=== PATIENT | male | born 1975 | race Caucasian/White ===

== ENCOUNTER 2023-06-01 11:11 | Emergency (ER) | payer MEDICARE, OTHER, SELFPAY ==
[2023-06-01 11:20] VITALS: BP 129/81; PULSE 98; RESP 18; TEMP 37.1; O2SAT 95; BMI 30.3
--- NOTE | 2023-06-01 12:21 | ED.GENADULT ---
HPI - General Adult General Chief complaint: Extremity Pain/Injury, Lower Stated complaint: right leg infection Time Seen by Provider: 06/01/23 11:34 Source: patient Mode of arrival: ambulatory Limitations: no limitations History of Present Illness HPI narrative: 47-year-old male coming in today with concerns about potential infection and his below the knee amputation stump. Patient states that he has a very difficult time finding prosthesis that fits and so he has recurrent infections and ulcerations of the stump. He denies any systemic symptoms. He states that he was sick with bronchitis for the last month, his last fever was approximately 7 days ago. He was treated with antibiotics for that he just finished his antibiotic 2 days ago. He states that there is some drainage coming from the stump. There is an ulceration present. Related Data Home Medications Medication Instructions Recorded Confirmed albuterol 90 mcg/actuation aerosol 2 spray inhalation ONCE 09/23/21 06/01/23 inhaler alprazolam 2 mg tablet 4 mg PO .Daily as needed PRN 09/23/21 06/01/23 dextroamphetamine-amphetamine 20 20 mg PO DAILY 09/23/21 06/01/23 mg tablet fluticasone 500 mcg-salmeterol 50 1 inh inhalation BID 09/23/21 06/01/23 mcg/dose blistr powdr for inhalation fluticasone propionate 50 2 spray intranasal QDAY 09/23/21 06/01/23 mcg/actuation nasal spray,suspension (Flonase Allergy Relief) methotrexate sodium (PF) 25 mg/mL 25 mg PO QWEEK 09/23/21 06/01/23 injection solution Previous Rx's Medication Instructions Recorded buprenorphine 12 mg-naloxone 3 mg 2.5 film buccal Q24H #70 ea 06/01/23 sublingual film Allergies Allergy/AdvReac Type Severity Reaction Status Date / Time cinnamon Allergy Intermediate tongune Verified 06/01/23 11:35 swelling erythromycin base Allergy Intermediate elevated Verified 06/01/23 11:35 heart rate, sob codeine Allergy Mild GI upset Verified 06/01/23 11:35 piperacillin Allergy Mild rash, itchy Verified 06/01/23 11:35 hydromorphone Allergy Unknown Verified 06/01/23 11:35 vancomycin Allergy Unknown Increased Verified 06/01/23 11:35 HR and sweating MANY ABO UNSURE OF ALL Allergy Unknown Uncoded 06/01/23 10:13 narcotics AdvReac Unknown Takes Uncoded 06/01/23 10:13 suboxone Review of Systems Status of ROS: Reports: 10 or more systems reviewed and unremarkable except as noted in History and below [facility] Medical History Laceration of left forearm ?S51.812A - Laceration without foreign body of left forearm, initial encounter (ICD-10) Social History Smoking Status: Never smoker Exam Narrative: Exam Narrative: Well-nourished well-developed, malodorous patient in no acute distress. Alert and oriented. Answers questions appropriately. Mood and affect are appropriate. Thoughts are goal oriented and rational. No tangential or magical thinking noted. Patient speaks in full sentences without needing to catch his breath. HEENT: Normocephalic atraumatic. Pupils are equally round reactive to light. Extraocular muscles are intact. Conjunctivae are moist without any icterus noted. Moist mucous membranes. Cardiovascular: Heart is regular rate and rhythm . Lungs: Clear to auscultation bilaterally no wheezes rhonchi or rales are appreciated. Patient takes deep breaths without any discomfort. Extremities: Patient has a [id number] amputation on the right. The lateral distal stump has a superficial ulceration approximately the size of a half dollar. There is some granulation tissue present there is no josefa pus. There is no surrounding erythema or skin induration. There is no evidence of abscess formation. Const: Vital Signs, click to edit/add: Vital Signs - 24 hr 06/01/23 11:20 Temperature 98.8 F Pulse Rate [Pulse Oximeter] 98 Respiratory Rate 18 Blood Pressure [Le ft Upper Arm] 129/81 Pulse Oximetry 95 Oxygen Delivery Me thod Room Air Course Course ED Course: The ulceration was cleaned and dressed in the ED today. Vital Signs Vital signs: Initial Vital Signs Temperature 98.8 F 06/01/23 11:20 Temperature Source Temporal Artery Scan 06/01/23 11:20 Pulse Rate 98 06/01/23 11:20 Respiratory Rate 18 06/01/23 11:20 Blood Pressure 129/81 06/01/23 11:20 Blood Pressure Mean 97 06/01/23 11:20 Blood Pressure Position Sitting 06/01/23 11:20 Pulse Oximetry 95 06/01/23 11:20 Oxygen Delivery Method Room Air 06/01/23 11:20 Vital Signs Temperature 98.8 F 06/01/23 11:20 Pulse Rate 98 06/01/23 11:20 Respiratory Rate 18 06/01/23 11:20 Blood Pressure 129/81 06/01/23 11:20 Pulse Oximetry 95 06/01/23 11:20 Oxygen Delivery Method Room Air 06/01/23 11:20 Temperature 98.8 F 06/01/23 11:20 Pulse Rate 98 06/01/23 11:20 Respiratory Rate 18 06/01/23 11:20 Blood Pressure 129/81 06/01/23 11:20 Pulse Oximetry 95 06/01/23 11:20 Oxygen Delivery Method Room Air 06/01/23 11:20 Medical Decision Making MDM Narrative Medical decision making narrative: 47-year-old male with ulceration of his amputation stump. We discussed appropriate dressing changes and wound hygiene on a daily basis. We discussed not wearing his prosthesis until this heals. We discussed getting fitted for a new prosthesis. We discussed following up with primary care this week for a recheck. Medical Records Medical records reviewed: Yes I reviewed the patient's medical records Discharge Plan Discharge Clinical Impression: Skin ulcer Patient Disposition: Home, Self-Care Condition: Stable Additional Instructions: Keep wound clean and dry. Clean daily with warm soapy water and dress the wound as it was dressed in the ER today with a thin layer of antibiotic treatment followed by a nonstick layer and padding. Avoid use of the prosthesis until this has healed completely. Follow-up with your primary care provider in 48-72 hours for recheck. Return to the ER if the area becomes hot and red, or you develop a fever above 100.5. Prescriptions: No Action methotrexate sodium (PF) 25 mg/mL solution 25 mg PO QWEEK alprazolam 2 mg tablet 4 mg PO .Daily as needed PRN fluticasone propion-salmeterol 500-50 mcg/dose blister with device 1 inh inhalation BID dextroamphetamine-amphetamine 20 mg tablet 20 mg PO DAILY fluticasone propionate [Flonase Allergy Relief] 50 mcg/actuation spray,suspension 2 spray intranasal QDAY Rx Instructions: administer into each nostril albuterol 90 mcg/actuation aerosol 2 spray inhalation ONCE buprenorphine-naloxone 12-3 mg film 2.5 film buccal Q24H Qty: 70 0RF Rx Instructions: place 1 strip/tab under (each) side of tongue - 2 1/2 strips daily Follow Up/Referrals: Provider,Not a Local [Primary Care Provider] - Stand Alone Forms: MyHealth Info Instructions
[2023-06-01 12:30] VITALS: BP 116/69; PULSE 88; RESP 14; O2SAT 94
== END 2023-06-01 12:55 | disposition home or self-care (01) ==
LOC: ED 12:30
PROVIDERS: Emergency Provider Family Medicine
DX: L97.918 Non-pressure chronic ulcer of unspecified part of right lower leg with other specified severity (principal); T87.89 Other complications of amputation stump
CPT/HCPCS: 99283